=== PATIENT | female | born 2000 | race Two or more races ===

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

== ENCOUNTER 2019-05-20 21:48 | Emergency (ER) | payer BC | END 2019-05-20 21:58 | disposition left against medical advice (07) | LOC: ER 21:48 | DX: Z53.21 Procedure and treatment not carried out due to patient leaving prior to being seen by health care provider (principal) ==

== ENCOUNTER 2020-05-17 00:58 | Emergency (ER) | payer BC ==
[2020-05-17] MEDS ORDERED: LIDOCAINE 1%/EPINEPHRINE INJ 20 ML VIAL ONE (01:08)
[2020-05-17] MEDS ORDERED: LIDOCAINE 1%/EPINEPHRINE INJ 20 ML VIAL INJ ONE (01:13)
[2020-05-17] MEDS ORDERED: DIPH/PERTUSS(ACELL)/TETANUS VAC/PF 0.5 ML SYR (>=10YO) IM ONE (01:14)
[2020-05-17 01:22] LABS: ABSOLUTE BASOPHILS # (AUTO) 0.1 10^3/uL (0.0-0.2); ABSOLUTE EOSINOPHILS # (AUTO) 0.3 10^3/uL (0.0-0.6); ABSOLUTE LYMPHOCYTES (AUTO) 3.3 10^3/uL (0.5-4.7); ABSOLUTE MONOCYTES (AUTO) 0.8 10^3/uL (0.1-1.4); ABSOLUTE NEUT (AUTO) 5.5 10^3/uL (1.7-8.2); BASOPHILS % (AUTO) 1.1 % (0-2); HEMATOCRIT 40.5 % (36.0-47.0); HEMOGLOBIN 14.3 g/dL (12.0-15.5); LYMPHOCYTES % (AUTO) 32.4 % (13-45); MEAN CORPUSCULAR HEMOGLOBIN 32.3 pg (27.0-33.4); MEAN CORPUSCULAR HGB CONC 35.2 g/dL (32.0-36.0); MEAN CORPUSCULAR VOLUME 92 fl (80-97); MONOCYTES % (AUTO) 8.3 % (3-13); PLATELET COUNT 176 10^3/uL (150-450); RED BLOOD COUNT 4.42 10^6/uL (3.72-5.28); RED CELL DISTRIBUTION WIDTH 12.6 % (11.5-14.0); SEGMENTED NEUTROPHILS % (AUTO) 55.2 % (42-78); TOTAL CELLS COUNTED % (AUTO) 100 %; WHITE BLOOD COUNT 10.1 10^3/uL (4.0-10.5)
[2020-05-17] MEDS ORDERED: ONDANSETRON HCL INJ/PF 4 MG/2 ML SDV ONE (01:26)
[2020-05-17] MEDS ORDERED: HALOPERIDOL LACTATE INJ 5 MG/1 ML VIAL ONE ×2 (01:27→10:19)
[2020-05-17 01:28] LABS: ALBUMIN 4.3 g/dL (3.5-5.0); ALKALINE PHOSPHATASE 65 U/L (38-126); ANION GAP 11 (5-19); ASPARTATE AMINO TRANSFERASE 21 U/L (14-36); BILIRUBIN,TOTAL 0.3 mg/dL (0.2-1.3); BLOOD UREA NITROGEN 15 mg/dL (7-20); CARBON DIOXIDE 22 mmol/L (22-30); CHLORIDE 110 mmol/L (98-107); GLUCOSE 126 mg/dL (75-110); POTASSIUM 3.5 mmol/L (3.6-5.0); TOTAL PROTEIN 8.3 g/dL (6.3-8.2)
[2020-05-17] MEDS ORDERED: LORAZEPAM INJ 2 MG/1 ML VIAL IV ONE (01:30)
[2020-05-17 01:43] LABS: ALCOHOL 362 mg/dL (NONE DETECTED)
--- NOTE | 2020-05-17 02:02 | ER Document Report ---
ED General - General Chief Complaint: Psych Problem Stated Complaint: PSYCH/WRIST LACERATION Time Seen by Provider: 05/17/20 01:13 Primary Care Provider: SELWYN JACQUES MD [Primary Care Provider] - Follow up as needed TRAVEL OUTSIDE OF THE [place] IN LAST 30 DAYS: No - HPI Notes: Chief complaint: Right wrist laceration History of present illness: 19-year-old female brought through the front lobby by her mother at she was found at home with her right wrist slashed and rodríguez earing to be highly intoxicated. Family is unsure when this wound was inflicted. We note that the patient has multiple old scars over the volar aspect of the right wrist. Patient is highly intoxicated and laughing on arrival. She denies any known allergies or current medications. Last menses un known. Denies prior surgery. When repeatedly asked why she had cut her wrist she laughed and wanted to talk about other things. She admits that she is been drinking "a lot" tonight. She denies drug abuse. - Related Data Allergies/Adverse Reactions: acetaminophen [From Percocet] Allergy (Verified 12/11/18 14:07) oxycodone [From Percocet] Allergy (Verified 12/11/18 14:07) Past Medical History - General Information source: Patient, Relative, [facility] Records Cannot obtain history due to: Intoxicated - Social History Smoking Status: Unknown if Ever Smoked Frequency of alcohol use: Heavy Drug Abuse: None Lives with: Family Family History: Reviewed & Not Pertinent Renal/ Medical History: Denies: Hx Peritoneal Dialysis Past Surgical History: Reports: Hx Orthopedic Surgery - Immunizations Immunizations up to date: Yes Review of Systems - Review of Systems -: Yes ROS unobtainable due to patient's medical condition Physical Exam - Vital signs Vitals: Temp 97.7 F 05/17/20 01:58 - Notes Notes: GENERAL: Female patient approximately stated age initially laughing and then subsequently agitated wanting to leave. She has an obvious laceration of the volar aspect of right wrist which is bleeding briskly on arrival. Strong odor of alcohol present SKIN: Good turgor no rashes. HEAD: Normocephalic atraumatic. EYES: Bilateral lid ptosis. PERRLA. EOMI. Conjunctivae and sclerae clear. EARS: CANALS AND TMS CLEAR. NOSE: CLEAR. MOUTH: Moist mucosa. Good dentition. No stridor or edema. No drooling. NECK: Supple. No masses or thyromegaly. No adenopathy. Carotids 2+ without bruits. No JVD. BACK: Symmetrical without tenderness. CHEST: Respirations unlabored. Breath sounds clear and symmetrical. HEART: Regular rhythm. No murmur gallop or rub. ABDOMEN: Soft nontender without masses, organomegaly or rebound. Bowel sounds normally active. No bruits. GENITALIA: Normal female. EXTREMITIES: 7.0 cm transverse laceration over the volar aspect of the right wrist. Brisk bleeding which is primarily venous with 2 small areas of arteriolar bleeding. Flexor tendons appear to be intact and there is no motor or sensory deficit appreciated distally. Good distal capillary refill. Patient is noted to have multiple old transverse scars from what appear to be previous self-inflicted lacerations of the right wrist. No edema. No calf tenderness. Cap refill less than 1.5 seconds. Dorsalis pedis and posterior tibial pulses 3+ and symmetrical. NEUROLOGICAL: Patient is oriented to person place but not time. Very slurred speech. Moving all 4 extremities spontaneously and symmetrically. PSYCHIATRIC: Very labile affect. Course - Re-evaluation Re-evalutation: 05/17/20 02:03 Patient required administration of IV Haldol and Ativan to control her agitation in order to accomplish repair laceration. She received a tetanus booster and also IV Zofran for nausea. 05/17/20 02:34 IV Ancef ordered. Patient remains hemodynamically stable at this time. Her hemoglobin is 14 g. Alcohol is in excess of 300. Urine drug screen is pending. I spoke with patient's mother who indicates that patient has been a "cutter" for a number of years. She states that patient smokes marijuana daily and consumes large amounts of alcohol. The patient apparently broke up with her boyfriend earlier today and is been drinking heavily tonight with friends and subsequently lacerated her wrist intentionally. I have petition for IVC. We will continue to observe her on the main ED at this time and after she has sobered somewhat we will anticipate moving her to [facility] pending behavioral medicine consult. - Vital Signs Vital signs: Temp Pulse Resp BP Pulse Ox 97.7 F 05/17/20 01:58 - Laboratory Result Diagrams: 05/17/20 01:03 05/17/20 01:03 Laboratory results interpreted by me: 05/17/20 05/17/20 01:03 02:05 Potassium 3.5 L Chloride 110 H Glucose 126 H Total Protein 8.3 H Urine Blood MODERATE H Serum Alcohol 362 H* Procedures - Laceration/Wound Repair Right Wrist Time completed: 01:55 Wound length (cm): 7.0 Wound's Depth, Shape: Linear Laceration pre-procedure: Sterile PPE donned, Sterile drapes applied, Shur-Clens applied Anesthetic type: 1% Lidocaine w/epi Volume Anesthetic (mLs): 10 Wound explored: Clean Irrigated w/ Saline (mLs): 1,000 Wound Repaired With: Sutures Suture Size/Type: 4:0, Prolene Number of Sutures: 7 Number Deep Layer Sutures: 2 - 2 [id number] Post-procedure wound care: Sterile dressing applied, Splint applied Post-procedure NV exam normal: Yes Complications: No Notes: 05/17/20 02:08 Tourniquet was applied initially because of 2 small arteriolar bleeders which were controlled with injection of lidocaine with epi and subsequent placement of 2 [id number] sutures. Critical Care Note - Critical Care Note Total time excluding time spent on procedures (mins): 35 - Patient required chemical restraint during attempts to repair laceration and application of a tourniquet temporarily to control bleeding Discharge - Discharge Clinical Impression: Suicide attempt Laceration of right wrist Qualifiers: Encounter type: initial encounter Qualified Code(s): S61.511A - Laceration without foreign body of right wrist, initial encounter Alcohol intoxication Qualifiers: Complication of substance-induced condition: with unspecified complication Qualified Code(s): F10.929 - Alcohol use, unspecified with intoxication, unspecified Disposition: PSYCH HOSP/UNIT Forms: Parent Work Note Referrals: SELWYN JACQUES MD [Primary Care Provider] - Follow up as needed
[2020-05-17] MEDS ORDERED: CEFAZOLIN 2 GM/D5W RTU 2 GM/50 ML RTUPB IV ONE (02:03)
[2020-05-17 02:27] LABS: APPEARANCE,URINE CLEAR; BILIRUBIN,URINE NEGATIVE (NEGATIVE); COLOR,URINE STRAW; GLUCOSE, URINE NEGATIVE (NEGATIVE); KETONES,URINE NEGATIVE (NEGATIVE); PROTEIN,URINE NEGATIVE (NEGATIVE); URINE SPECIFIC GRAVITY 1.004; UROBILINOGEN,URINE NEGATIVE mg/dL (<2.0)
[2020-05-17 02:41] LABS: URINE AMPHETAMINES SCREEN NEGATIVE; URINE BARBITURATES SCREEN NEGATIVE; URINE BENZODIAZEPINES SCREEN NEGATIVE; URINE COCAINE SCREEN NEGATIVE; URINE METHADONE SCREEN NEGATIVE; URINE PHENCYCLIDINE SCREEN NEGATIVE
[2020-05-17 02:50] LABS: URINE MARIJUANA (THC) SCREEN UNCONFIRMED POSITIVE
[2020-05-17] MEDS ORDERED: HALOPERIDOL LACTATE INJ 5 MG/1 ML VIAL IM ONE (10:17)
[2020-05-17] MEDS ORDERED: DIPHENHYDRAMINE HCL 50 MG/ML VIAL IM ONE (10:17)
[2020-05-17] MEDS ORDERED: LORAZEPAM INJ 2 MG/1 ML VIAL IM ONE (10:17)
--- NOTE | 2020-05-17 10:17 | ER Document Report ---
Doctor's Note Notes: 05/17/20 10:14 Reevaluation: Patient is sleeping in the room. She is easily arousable. She is very anxious and tearful, states she does not want to be here wants to leave and needs to go to work. She states she was angry last night and need to get out some anger which is why she cut her wrist. Her alcohol has decreased to 197 at this time. She is still pending psychiatry evaluation, currently under IVC paperwork. After discussing with the patient she became very aggressive and aggravated stating she wanted to leave. I exited the room so that the patient could change her close due to being on her menses, a sitter was watching her and the patient attempted to flee the emergency department. She was stopped by security, she is screaming and very angry and aggressive at this time. Benadryl Haldol and Ativan will be ordered. She is pending psychiatry evaluation. Will monitor.
[2020-05-17] MEDS ORDERED: DIPHENHYDRAMINE HCL 50 MG/ML VIAL ONE (10:19)
--- NOTE | 2020-05-17 10:20 | EKG REPORT ---
SEVERITY:- NORMAL ECG - SINUS RHYTHM ST ELEV, PROBABLE NORMAL EARLY REPOL PATTERN : Confirmed by: Cullen Silva 17-May-2020 10:19:53
--- NOTE | 2020-05-17 12:14 | PSYCHOLOGICAL NOTE ---
Psych Note - Psych Note Date seen by psych provider: 05/17/20 Time seen by psych provider: 10:15 Psych Note: Reason for Consult: Suicidal ideation; self harm Patient arrived to [facility] ED via POV after cutting her wrist (7.0 cm transverse laceration over the volar aspect of the right wrist. Brisk bleeding which is primarily venous with 2 small areas of arteriolar bleeding). Patient attempted to [facility]OPE and required both pharmaceutical and physical restraints for her and staff safety. Patient is yelling obscenities at staff. Clinical presentation: intoxicated; alcohol self inflicted laceration labile affect poor impulse control Impression/Plan: Patient is recommended for IVC. Patient demonstrates labile mood with continued impaired cognitive processes. Patient came in with ETOH of 362 and was still 197 at 0840 this morning. Patient presented after intenti onally cutting her wrists, which required stitches, after breaking up with her boyfriend. Dr. Shipman was consulted on the care and management of this patient; attending physician is in agreement with recommendations.
[2020-05-17] MEDS ORDERED: HALOPERIDOL LACTATE INJ 5 MG/1 ML VIAL IM PRN (16:49)
[2020-05-17] MEDS ORDERED: CHLORPROMAZINE HCL 50 MG TABLET PO PRN (18:35)
[2020-05-18] MEDS: OLANZAPINE 5 MG TABLET PO SCH ×2 (09:23→17:52)
[2020-05-18] MEDS ORDERED: BENZTROPINE MESYLATE 1 MG TABLET PO SCH (10:00)
--- NOTE | 2020-05-18 12:47 | PSYCHOLOGICAL NOTE ---
Psych Note - Psych Note Date seen by psych provider: 05/18/20 Psych Note: Reason for Consult: Suicidal ideation; self harm Patient arrived to [facility] ED via POV after cutting her wrist (7.0 cm transverse laceration over the volar aspect of the right wrist. Brisk bleeding which is primarily venous with 2 small areas of arteriolar bleeding). Check in conducted with patient: Patient is observed sleeping in room and is currently either unable or unwilling to awaken. Patient has already been accepted to [facility] for admission tomorrow morning. Clinician will reattempt check in at a later time. Medication recommendations per [facility]'s contracted psychiatrist Dr Carroll LAMB are as follows: Zyprexa 5mg twice daily Cogentin 1mg daily Thorazine 50mg every 8 hours as needed Clinical presentation: Alcohol Abuse self inflicted laceration labile affect poor impulse control Impression/Plan: Patient is recommended for continued IVC. Patient demonstrates labile mood with continued poor insight and judgment. Patient presented after intentionally cutting her wrists, which required internal and external stitches, after breaking up with her boyfriend. Zayra has bene accpeted to [place] for am admission. transportation will be requested. Dr. Shipman was consulted on the care and management of this patient; attending physician is in agreement with recommendations.
--- NOTE | 2020-05-18 18:03 | ER Document Report ---
Doctor's Note Notes: 05/18/20 18:01 Progress note: Reevaluation of the patient today. She is still currently held here under IVC order from psychiatry team. She was initially seen in the emergency department after being under the influence of alcohol and cutting her wrist in relation to a break-up. Previously the patient was very agitated y esterday and had to be chemically and physically restrained. She is much calmer today has no restraints on board. General: She is pleasant and alert and oriented. Heart: Regular rate and rhythm. Lungs: Clear to auscultation bilaterally. Psych normal mood and affect. The current plan is to have her transferred tomorrow to [place]. Psychiatry team has received an accepting physician, Dr. Car. Plan is to have transfer occur at 8 AM tomorrow morning. Patient denies any medical complaints now. We will continue to monitor.
[2020-05-18 20:23] VITALS: BP 117/77
--- NOTE | 2020-05-19 09:47 | ER Document Report ---
Doctor's Note Notes: 05/19/20 09:46 Progress note: Patient is well-appearing, resting comfortably in her bed. Transport team is here to obtain a transport the patient to [place]. Patient has no complaints this morning. She is previously medically cleared. General: Well-appearing in no acute distress. Heart: Regular rate and rhythm. Lungs: Clear to auscultation bilaterally. Psych appropriate affect. Patient is stable and appropriate for transfer at this time.
== END 2020-05-19 09:30 ==
LOC: ER 00:58
DX: Z04.6 Encounter for general psychiatric examination, requested by authority (principal); S61.511A Laceration without foreign body of right wrist, initial encounter; X78.9XXA Intentional self-harm by unspecified sharp object, initial encounter; F10.129 Alcohol abuse with intoxication, unspecified; Y90.8 Blood alcohol level of 240 mg/100 ml or more; Z63.0 Problems in relationship with spouse or partner; Z63.4 Disappearance and death of family member; Z75.1 Person awaiting admission to adequate facility elsewhere; Z88.6 Allergy status to analgesic agent; Z88.8 Allergy status to other drugs, medicaments and biological substances; Z88.5 Allergy status to narcotic agent
CPT/HCPCS: 93005; 99285; 96372; 51702; 90471; 96375; 96365; 36415; 80307 ×2; 85025; 81025; 80053; 81001; 90715; 93010; 12032; J1200; J1630; J3490; J2060; J2405; J0690